=== PATIENT | male | born 1980 | race Caucasian/White ===

== ENCOUNTER 2016-08-16 12:35 | Emergency (ER) | payer SELFPAY ==
[~2016-08-16] VITALS: Ht 172.7 cm; Wt 77.1 kg
[~2016-08-16 12:35] MED LIST: ALPR1TAB2 PO; ANTIDEPRESSANT; AZTH250C PO; CELEXA PO; CLIN300C3 PO; CLON0.5T3 PO; CYCL10TA9 PO; DCS100C PO; DOXY-13 PO; FLUO40CA PO; GABA300C PO; HYDR1TAB PO; HYDR1TAB86; IBP800T PO; IBUP800T26 PO; LORA1TAB PO; METH4TAB PO; NAPR-243 PO; NF-ESOM40C PO; OMEP40CA36 PO; ONDA4TAB8 PO; OXC10TCR PO; OXC20TCR PO; OXYC-465 PO; OXYC15TA21 PO; OXYC1CAP3 PO; OXYC30TA PO; OXYC30TA22 PO; OXYCODON; PENI500T PO; PRAZ2CAP2 PO; PRAZ5CAP2 PO; PRD50T PO; QUET50TA55 PO; SILD100T PO; SULF-222 PO; SULF1TAB35 PO; SULF1TAB38 PO; TRAM-21 PO; TRAZ100T92 PO; TRM50T PO; [UNRECOGNIZED DRUG - OTHER]; oxycodone
--- OUTSIDE RECORDS SUMMARY | 2016-08-16 12:41 | XMS REPORT ---
Author Author THERESA BAREKR Organization [employer] Address Unknown Phone Unavailable Care Team Providers Care Help Desk Support Specialist Name Role Phone THERESA BARKER CP Unavailable Allergies No Known Allergies Problems Problem Type Condition Code Onset Dates Condition Status Problem Drug withdrawal 292.0 Active Problem Pneumonia, organism unspecified 486 Active Problem Cellulitis and abscess of other specified site 682.8 Active Medications No Known Medications Results No Known Results Summary Purpose [facility] Submission
--- NOTE | 2016-08-16 13:27 | ED EENT ---
History of Present Illness General Chief Complaint: Dental Problems/Pain Stated Complaint: FACIAL SWELLING Nursing Triage Note: Pt c/o L upper dental pain and L side facial swelling x1 week. Pt reports he saw a dentist and was then referred to Dr. Gore but was unable to be seen by Dr. Gore because he didn't have insurance. Source: patient Exam Limitations: no limitations History of Present Illness Time seen by provider: 13:26 Initial Comments 36 yo male patient presents to the emergency department with complaints of left upper dental pain and facial swelling for one week. Patient states he's been seen previously by his dentist and Dr. Gore, but is unable to afford Dr. Gore's procedure cost. Patient denies fevers or difficulty swallowing. Denies difficulty breathing. Patient states he is not able to take tylenol due to hepatitis C. States he can not take hydrocodone or codeine, but is able to take "the little pink pill for pain." Unable to remember the name. When patient asked if it was tramadol or oxycodone, patient states "yeah, that was it. oxycodone." Patient states he has a h/o IV drug use, but has been clean for 2-3 years. Patient tested (+) for meth, benzodiazepines, and opiates september 2015. Timing/Duration: gradual, last week Location: facial, dental Prearrival Treatment: no prearrival treatment Presenting Symptoms/Injuries: left upper dental pain and swelling. Modifying Factors: Worse With Other (worse with palpation and chewing) Allergies and Home Medications Allergies Coded Allergies: acetaminophen (Unverified Allergy, Mild, 02/14/09) codeine (Unverified Allergy, Mild, TAKES OXYCODONE AT HOME, 08/03/11) levofloxacin (Unverified Allergy, Mild, 11/26/08) propoxyphene (Unverified Allergy, Mild, 02/14/09) Metronidazole HCl (Verified Allergy, Unknown, 03/20/15) erythromycin base (Unverified Allergy, Unknown, 03/20/15) metronidazole (Verified Allergy, Unknown, 03/20/15) Home Medications Cephalexin 500 Mg Capsule #30 500 MG PO TID Prescribed by: CONRADO MARSHALL on 08/16/16 1402 Tramadol HCl 50 Mg Tablet #14 50 MG PO Q6H PRN PRN PAIN Prescribed by: CONRADO MARSHALL on 08/16/16 1402 Review of Systems Constitutional: No chills, No fever, No malaise Eyes: No Symptoms Reported Ears: No Symptoms Reported Nose: no symptoms reported Mouth: see HPI Throat: no symptoms reported Respiratory: no symptoms reported Cardiovascular: no symptoms reported Gastrointestinal: no symptoms reported Skin: No change in color Neurological: Denies Headache, Denies Numbness, Denies Paresthesia, Denies Tingling All Other Systems Reviewed Negative Unless Noted: Yes (Negative excepted noted.) Past Fvhaxkd-Zgysok-Bmucaz Hx Patient Social History Alcohol Use: Denies Use Recreational Drug Use: Yes (past hx meth per old records) Drug of Choice: METH Smoking Status: Current Everyday Smoker Type Used: Cigarettes Former Smoker/When Quit: Nov 29, 2011 Recent Foreign Travel: No Contact w/Someone Who Travel: No Recent Infectious Disease Expo: No Recent Hopitalizations: No Immunizations Up To Date Tetanus Booster (TDap): Less than 5yrs Date of Influenza Vaccine: Mar 04, 2012 Seasonal Allergies Seasonal Allergies: No Surgeries HX Surgeries: Yes (COLON RESECTION,L LEG,CARPEL TUNNEL,GROIN, R WRIST/ARM, BACK ,JAW) Surgeries: Abdominal, Orthopedic Respiratory Hx Respiratory Disorders: No Cardiovascular Hx Cardiac Disorders: Yes Cardiac Disorders: Heart Attack Neurological Hx Neurological Disorders: No Reproductive System Hx Reproductive Disorders: No Sexually Transmitted Disease: No HIV/AIDS: No Genitourinary Hx Genitourinary Disorders: No Gastrointestinal Hx Gastrointestinal Disorders: Yes (HEPATITIS C-NO TREATMENT) Gastrointestinal Disorders: Gastroesophageal Reflux, Hepatitis Musculoskeletal Hx Musculoskeletal Disorders: Yes Musculoskeletal Disorders: Back Injury, Chronic Back Pain Endocrine Hx Endocrine Disorders: No HEENT HX ENT Disorders: No Loss of Vision: Denies Hearing Impairment: Hard of Hearing Cancer Hx Cancer: No Psychosocial Hx Psychiatric Problems: Yes Behavioral Health Disorders: Sleep Difficulties, Anxiety, PTSD, Depression Integumentary HX Skin/Integumentary Disorder: No Blood Transfusions Hx Blood Disorders: No Reviewed Nursing Assessment Reviewed/Agree w Nursing PMH: Yes Family Medical History Significant Family History: No Pertinent Family Hx Physical Exam Vital Signs Vital Sign - Last 12Hours 08/16/16 13:00 Temp 98.8 Pulse 70 Resp 18 B/P 144/96 Pulse Ox 97 O2 Delivery Room Air General Appearance: WD/WN no apparent distress Eyes: bilateral eye EOMI, bilateral eye PERRL, bilateral eye normal inspection Ears: bilateral ear TM normal, bilateral ear auricle normal, bilateral ear canal normal Nose: normal inspection Mouth/Throat: pharynx normal dental tenderness (left upper dental tenderness. Mild swelling of the gums.)No excessive drooling, No mandibular swelling, maxillary swelling (left maxillary swelling.)No pharynx swelling, No pharynx tenderness, No tongue swollen, No trismus, No uvula swelling, No voice changes, other (patient is able to tolerate his own secretions. Numerous dental caries and fractured teeth throughout the mouth.) Neck: non-tender full range of motion suppleNo lymphadenopathy (R), lymphadenopathy (L) (anterior cervical lymphadenopathy.) Cardiovascular: regular rate, rhythm no murmur Respiratory: lungs clear normal breath sounds no respiratory distress Neurologic/Psychiatric: alert normal mood/affect oriented x 3 Skin: normal color warm/dry other (multiple scabs noted on the scalp and face. ) Progress/Results/Core Measures Results/Orders My Orders Orders-CONRADO MARSHALL Ibuprofen Tablet (Motrin Tablet) (08/16/16 13:44) Tramadol Tablet (Ultram Tablet) (08/16/16 13:44) Ceftriaxone Injection (Rocephin Injectio (08/16/16 13:45) Lidocaine 1% Injection (Xylocaine 1% Inj (08/16/16 13:45) Vital Signs/I&O Vital Sign - Last 12Hours 08/16/16 13:00 Temp 98.8 Pulse 70 Resp 18 B/P 144/96 Pulse Ox 97 O2 Delivery Room Air Blood Pressure Mean: 112 Departure Communication Progress Notes Patient seen and evaluated. Patient given 1 g Rocephin in the emergency department as well as ibuprofen and tramadol. Discharge to home. Impression Impression: Primary Impression: Dental abscess Additional Impression: Dental caries Disposition: HOME, SELF-CARE Condition: Improved Departure-Patient Inst. Decision time for Depature: 13:47 Referrals: BLAINE GORE DDS,LOCAL PHYSICIAN (PCP) Primary Care Physician [facility] Patient Instructions: Tooth Abscess (DC) Add. Discharge Instructions: All discharge instructions reviewed with patient and/or family. Voiced understanding. Medications as directed, Motrin 800 mg by mouth every 8 hours as needed for pain. Ice packs or heating pads as needed for pain and swelling. Diet as tolerated. Follow-up with your dentist or Dr. Gore as an outpatient for recheck and further management. Follow-up with Isrrael Morin APRN for recheck. Return to the emergency department for worsened pain, swelling, difficulty swallowing, difficulty breathing, fever, or any other concerns. Scripts Cephalexin 500 Mg [id number] Mg PO TID #30 CAP Ref 0 Prov:CONRADO MARSHALL 08/16/16 Tramadol HCl 50 Mg [id number] Mg PO Q6H PRN PAIN #14 TAB Ref 0 Prov:CONRADO MARSHALL 08/16/16 Copy Copies To 1: ADALBERTO MOREL GRETCHEN L PA Aug 16, 2016 13:27
[2016-08-16] MEDS ORDERED: IBUPROFEN 800 MG (MOTRIN) TAB PO STA (13:44)
[2016-08-16] MEDS ORDERED: cefTRIAXone 1 GM (ROCEPHIN) VIAL IM ONE (13:45)
[2016-08-16] MEDS ORDERED: LIDOCAINE 1% INJ 20 ML (XYLOCAINE) VIAL INJ ONE (13:45)
[2016-08-16] MEDS ORDERED: CEPH500C PO (14:02)
[2016-08-16] MEDS ORDERED: TRAM50TA2 PO (14:02)
[2016-08-16 14:36] VITALS: BP 138/96
== END 2016-08-16 14:36 | disposition home or self-care (01) ==
LOC: EDUNIT# 12:35 → ER 12:37
DX: K04.7 Periapical abscess without sinus (principal); K02.9 Dental caries, unspecified; F17.210 Nicotine dependence, cigarettes, uncomplicated
CPT/HCPCS: 96372; 99282

== ENCOUNTER 2017-09-14 10:52 | Emergency (ER) | payer SELFPAY ==
[~2017-09-14] VITALS: Ht 172.7 cm; Wt 77.1 kg
[~2017-09-14 10:52] MED LIST changes: +CEPH500C PO; +TRAM50TA2 PO; +TRAZ-190 PO; -TRAZ100T92 PO
[2017-09-14] MEDS ORDERED: TRAM50TA2 PO (11:29)
--- NOTE | 2017-09-14 11:29 | ED Lower Extremity ---
General Chief Complaint: Lower Extremity Stated Complaint: RT KNEE INJ Nursing Triage Note: RIGHT KNEE PAIN AFTER TWISTING WHEN PLAYING BASKETBALL. Nursing Sepsis Screen: No Definite Risk Source: patient Exam Limitations: no limitations History of Present Illness Date Seen by Provider: Sep 14, 2017 Time Seen by Provider: 11:26 Initial Comments to ER with right knee pain. He was playing basketball with his nephew about 3 hours prior to arrival when he twisted on his knee. He has lateral right knee pain and inability to bear weight. Onset: just prior to arrival Severity: moderate Pain/Injury Location: right knee Method of Injury: sports injury Modifying Factors: Worse With Movement Allergies and Home Medications Allergies Coded Allergies: acetaminophen (Unverified Allergy, Mild, 02/14/09) codeine (Unverified Allergy, Mild, TAKES OXYCODONE AT HOME, 08/03/11) levofloxacin (Unverified Allergy, Mild, 11/26/08) propoxyphene (Unverified Allergy, Mild, 02/14/09) Metronidazole HCl (Verified Allergy, Unknown, 03/20/15) erythromycin base (Unverified Allergy, Unknown, 03/20/15) metronidazole (Verified Allergy, Unknown, 03/20/15) Home Medications Tramadol HCl 50 Mg Tablet, 50 MG PO Q6H PRN for PAIN-MODERATE TO SEVERE Prescribed by: MARIELA CARMEN on 09/14/17 1129 Patient Home Medication List Home Medication List Reviewed: Yes Constitutional: see HPI EENTM: see HPI Respiratory: no symptoms reported Cardiovascular: no symptoms reported Genitourinary: no symptoms reported Musculoskeletal: see HPI Skin: no symptoms reported Psychiatric/Neurological: No Symptoms Reported Past Gqyxzgi-Fpvbps-Deefpt Hx Patient Social History Alcohol Use: Denies Use Recreational Drug Use: Yes Drug of Choice: METH HX Type Used: Smokeless Tobacco 2nd Hand Smoke Exposure: No Recent Foreign Travel: No Contact w/Someone Who Travel: No Recent Infectious Disease Expo: No Recent Hopitalizations: No Immunizations Up To Date Tetanus Booster (TDap): Less than 5yrs Date of Influenza Vaccine: Mar 04, 2012 Seasonal Allergies Seasonal Allergies: No Past Medical History Surgeries: Yes (COLON RESECTION,L LEG,CARPEL TUNNEL,GROIN, R WRIST/ARM, BACK, JAW) Abdominal, Orthopedic Respiratory: No Cardiac: Yes Heart Attack Neurological: No Reproductive Disorders: No Sexually Transmitted Disease: No HIV/AIDS: No Gastrointestinal: Yes (HEPATITIS C-NO TREATMENT) Gastroesophageal Reflux, Hepatitis Musculoskeletal: Yes Back Injury, Chronic Back Pain Endocrine: No Loss of Vision: Denies Hearing Impairment: Hard of Hearing Cancer: No Psychosocial: Yes Sleep Difficulties, Anxiety, PTSD, Depression Integumentary: No Blood Disorders: No Family Medical History No Pertinent Family Hx Physical Exam Vital Signs Vital Signs - First Documented 09/14/17 11:05 Temp 98.7 Pulse 110 Resp 18 B/P (MAP) 160/111 (127) Pulse Ox 98 O2 Delivery Room Air Capillary Refill : Less Than 3 Seconds General Appearance: WD/WN, no apparent distress HEENT: PERRL/EOMI, normal ENT inspection Neck: non-tender, full range of motion Respiratory: no respiratory distress, no accessory muscle use Hips: bilateral hip non-tender, bilateral hip normal inspection, bilateral hip normal range of motion Legs: bilateral leg non-tender, bilateral leg normal inspection, bilateral leg normal range of motion Knees: right knee pain, right knee other (No swelling or ecchymosis or erythema ) Ankles: bilateral ankle non-tender, bilateral ankle normal inspection, bilateral ankle normal range of motion Feet: bilateral foot non-tender, bilateral foot normal inspection, bilateral foot normal range of motion Neurologic/Psychiatric: alert, normal mood/affect, oriented x 3 Skin: normal color, warm/dry Progress/Results/Core Measures My Orders Orders - MARIELA CARMEN APRN Knee, Right, 3 Views (09/14/17 11:23) Tramadol Tablet (Ultram Tablet) (09/14/17 11:30) Crutches (09/14/17 11:30) Immobilizer Knee St 19 Inch (09/14/17 11:30) Medications Given in ED Current Medications Medications Dose Ordered Sig/Everardo Route Start Time Stop Time Status Last Admin Dose Admin Tramadol HCl 50 mg ONCE ONCE PO 09/14/17 11:30 09/14/17 11:31 DC 09/14/17 11:35 50 MG Vital Signs/I&O 09/14/17 09/14/17 09/14/17 11:05 11:35 12:15 Temp 98.7 98.7 98.7 Pulse 110 94 Resp 18 18 B/P (MAP) 160/111 (127) 145/95 (127) Pulse Ox 98 98 O2 Delivery Room Air Room Air Blood Pressure Mean: 127 Departure Impression Primary Impression: Sprain of knee Disposition: 01 HOME, SELF-CARE Condition: Stable Departure-Patient Inst. Decision time for Depature: 11:28 Referrals: [facility] (PCP/Family) Primary Care Physician Patient Instructions: Sprain (DC), Ligament Injuries in the Knee (DC) Add. Discharge Instructions: 1. Use crutches as needed when walking 2. Wear the knee brace when you're up moving about 3. Follow-up with your doctor next week for recheck. If you have persistent pain they may wish to order an MRI of the knee. All discharge instructions reviewed with patient and/or family. Voiced understanding. Scripts Tramadol HCl (Tramadol HCl) 50 Mg Tablet 50 MG PO Q6H PRN for PAIN-MODERATE TO SEVERE, #10 TAB Prov: MARIELA CARMEN APRN 09/14/17 MARIELA CARMEN APRN Sep 14, 2017 11:29
--- NOTE | 2017-09-14 11:53 | Diagnostic Imaging Report ---
INDICATION: Right knee pain and limited mobility. TIME OF EXAMINATION: 11:53 AM. FINDINGS: Three views of the right knee demonstrate normal alignment. The joint spaces are well maintained. The articular surfaces are smooth. No fracture, dislocation, or effusion is seen. IMPRESSION: No acute bony abnormality is detected. Dictated by: Dictated on workstation # [id number]
[2017-09-14 12:15] VITALS: BP 145/95
--- OUTSIDE RECORDS SUMMARY | 2017-09-16 07:27 | XMS REPORT ---
Author Author THERESA BARKER Organization [employer] Address Unknown Phone Unavailable Care Team Providers Care Electrical Electronics Engineer Name Role Phone THERESA BARKER CP Unavailable Allergies No Known Allergies Problems Problem Type Condition Code Onset Dates Condition Status Problem Drug withdrawal 292.0 Active Problem Pneumonia, organism unspecified 486 Active Problem Cellulitis and abscess of other specified site 682.8 Active Medications No Known Medications Results No Known Results Summary Purpose [facility] Submission
--- OUTSIDE RECORDS SUMMARY | 2017-09-16 07:28 | XMS REPORT ---
Author Author JOSE WHITE Organization [employer] Address Unknown Phone Unavailable Care Team Providers Care Piano Accompanist Name Role Phone JOSE WHITE CP Unavailable Allergies, Adverse Reactions, Alerts Substance Reaction Event Type Tylenol Info Not Available Drug Allergy Levaquin hives Drug Allergy Codeine Sulfate Info Not Available Drug Allergy Problems Problem Type Condition Code Onset Dates Condition Status Problem Posttraumatic stress disorder F43.10 Active Problem Anxiety disorder, unspecified F41.9 Active Problem Depressive disorder, not elsewhere classified F32.9 Active Assessment Anxiety disorder, unspecified F41.9 Active Assessment Depressive disorder, not elsewhere classified F32.9 Active Assessment Posttraumatic stress disorder F43.10 Active Medications No Known Medications Procedures Procedure Coding System Code Date Psych diagnostic evaluation, new patient CPT-4 56376 September 24, 2015 Results No Known Results Summary Purpose [employer] Submission
--- OUTSIDE RECORDS SUMMARY | 2017-09-16 07:28 | XMS REPORT ---
Author Author MARYLOU URENA Organization [employer] Address Unknown Phone Unavailable Care Team Providers Care Water Reclamation Systems Operator Name Role Phone MARYLOU URENA Unavailable Allergies No Known Allergies Problems Problem Type Condition Code Onset Dates Condition Status Problem Posttraumatic stress disorder F43.10 Active Problem Anxiety disorder, unspecified F41.9 Active Problem Depressive disorder, not elsewhere classified F32.9 Active Medications Medication Code System Code Instructions Start Date End Date Status Dosage Seroquel [facility] [address]-69 50 mg Orally twice a day September 23, 2015 1 tablet Prazosin HCl [facility] 16125532780 5 MG Orally Once a day 1 capsule at bedtime Omeprazole [facility] [address]-67 40 MG Orally Once a day 1 capsule Fluoxetine HCl [facility] [address]-53 40 MG Orally Once a day Mar 19, 2015 1 capsule in the morning Docusate Sodium [facility] [address]-02 100 MG Orally Twice a day 2 capsule as needed Trazodone HCl [facility] 94393997243 100 MG Orally Once a day at bedtime 2 tablet at bedtime Results No Known Results Summary Purpose [employer] Submission
--- OUTSIDE RECORDS SUMMARY | 2017-09-16 07:28 | XMS REPORT ---
Author Author THERESA BARKER Organization [employer] Address Unknown Phone Unavailable Care Team Providers Care Hospital Chaplain Name Role Phone THERESA BARKER CP Unavailable Allergies No Known Allergies Problems Problem Type Condition Code Onset Dates Condition Status Problem Drug withdrawal 292.0 Active Problem Pneumonia, organism unspecified 486 Active Problem Cellulitis and abscess of other specified site 682.8 Active Medications Medication Code System Code Instructions Start Date End Date Status Dosage Xanax [facility] [address]-72 1 MG Orally Three times a day 1 tablet Oxycodone HCl [facility] [address]-49 10 MG Orally 3 times a day Feb 17, 2015 1 tablet as needed Results No Known Results Summary Purpose [employer] Submission
--- OUTSIDE RECORDS SUMMARY | 2017-09-16 07:28 | XMS REPORT ---
Author Author MARYLOU URENA Organization [employer] Address Unknown Phone Unavailable Care Team Providers Care Biofuels Plant Manager Name Role Phone MARYOLU URENA CP Unavailable Allergies, Adverse Reactions, Alerts Substance Reaction Event Type Tylenol Info Not Available Drug Allergy Levaquin hives Drug Allergy Codeine Sulfate Info Not Available Drug Allergy Problems Problem Type Condition Code Onset Dates Condition Status Problem Posttraumatic stress disorder F43.10 Active Problem Anxiety disorder, unspecified F41.9 Active Problem Depressive disorder, not elsewhere classified F32.9 Active Assessment Posttraumatic stress disorder F43.10 Active Assessment Anxiety disorder, unspecified F41.9 Active Medications Medication Code System Code Instructions Start Date End Date Status Dosage Prazosin HCl [facility] [address]-48 5 MG Orally Once a day 1 capsule at bedtime Fluoxetine HCl [facility] [address]-27 40 MG Orally Once a day Mar 19, 2015 1 capsule in the morning Trazodone HCl [facility] 52524056721 100 MG Orally Once a day at bedtime 2 tablet at bedtime Procedures Procedure Coding System Code Date Office Visit, Est Pt., Level 4 CPT-4 22537 September 30, 2015 Vital Signs Date/Time: September 30, 2015 Temperature 98.6 F Weight 163.4 lbs Height 68.5 in BMI 24.48 Index Blood Pressure Diastolic 81 mmHg Blood Pressure Systolic 120 mmHg Cardiac Monitoring Heart Rate 88 bpm Results No Known Results Summary Purpose [employer] Submission
--- OUTSIDE RECORDS SUMMARY | 2017-09-16 07:29 | XMS REPORT | Continuity Of Care Document ---
Author Author [facility] Organization [facility] Address [address] [place] [address] Phone Care Team Providers Care Performance Consultant Name Role Phone MICHAEL MONTOYA MD AT NON STAFF COURTESY, PROVIDER PP Unavailable Results Results No results recorded. Allergies and Adverse Reactions Allergies and Adverse Reactions Patient Unit Number: [id number] Agent Type Reaction Severity Status METRONIDAZOLE Drug Allergy Unknown Mild Active LEVOFLOXACIN Drug Allergy HIVES Mild Active Problem List Problem List Visit/Account #[id number] (January 15, 2015 3:48pm - January 15, 2015 4:12pm) Acute Problems: Code/Condition Comments Documented Start Date Documented Resolved Date Code (s) Dental caries ICD10: K02.9 Dental caries ICD9: 521.00 Dental caries SNOMED: 917604833 Dental caries Plan of Care Plan Of Care Visit/Account #[id number] (January 15, 2015 3:48pm - January 15, 2015 4:12pm) Patient Instructions Return if worse or any concern. Follow-up with Hetal Holloway for establishment of primary care as well as for dental care. Vital Signs Vital Signs Visit/Account #[id number] (January 15, 2015 3:48pm - January 15, 2015 4:12pm) Sign First Result Last Result Code(s) Body Mass Index Body Mass Index (BMI): 23.0 kg/m2 On January 15, 2015 3:44pm 16009-5 BMI (body mass index) Body Mass Index as a Calculated Value 23.8 kg/m2 On January 15, 2015 3:44pm 91042-9 BMI (body mass index) Body Surface Area as a Calculated Value 1.89 m2 On January 15, 2015 3:44pm 3140-1 BSA (body surface area) Height (Feet/Inches) 5 [ft_us] 9 [in_us] On January 15, 2015 3:44pm Temperature in Fahrenheit Temperature (Fahrenheit): 98.6 [degF] On January 15, 2015 3:44pm Temperature (Fahrenheit): 98.3 [degF] On January 15, 2015 4:10pm 8310-5 Body Temperature Weight in Kilograms Weight (Kilograms): 73.2 kg On January 15, 2015 3:44pm 3141-9 Weight Measured 33862-1 Body weight measured in kilograms Functional Status Functional and Cognitive Status No Functional Status Data Medications Home Medications - Medications that the patient was taking prior to arrival at the hospital Visit/Account #[id number] (January 15, 2015 3:48pm - January 15, 2015 4:12pm) Medication Route Sig/Schedule Precondition/Indication Comments/Instructions Codes NEURONTIN(GABAPENTIN) 600 MG TABLET Dose: 900 MG ORAL 3 TIMES A DAY gabapentin 600 MG Oral Tablet [Neurontin] (RxNorm): 262375 NEURONTIN (GABAPENTIN) NDC: 13324824066 Prazosin(PRAZOSIN HCL) 2 MG CAP Dose: 2 MG ORAL AT BEDTIME Prazosin 2 MG Oral Capsule (RxNorm): 602429 Prazosin (PRAZOSIN HCL) NDC: 41847693878 PROZAC(FLUoxetine HCL) 40 MG CAPSULE Dose: 40 MG ORAL DAILY Fluoxetine 40 MG Oral Capsule [Prozac] (RxNorm): 925002 PROZAC (FLUoxetine HCL) NDC: 08136612348 PRILOSEC(OMEPRAZOLE) 20 MG CAPSULE.DR Dose: 20 MG ORAL DAILY Omeprazole 20 MG Delayed Release Oral Capsule [Prilosec] (RxNorm): 293263 PRILOSEC (OMEPRAZOLE) NDC: 04343005305 XANAX(ALPRAZolam) 1 MG TABLET Dose: 1 MG ORAL 3 TIMES A DAY ANXIETY/AGITATION/SLEEP Alprazolam 1 MG Oral Tablet [Xanax] (RxNorm): 947348 XANAX (ALPRAZolam) NDC: 68678992500 Discharge Medications - Medications that patient should continue to take. Review with physician Visit/Account #[id number] (January 15, 2015 3:48pm - January 15, 2015 4:12pm) Medication Route Sig/Schedule Precondition/Indication Comments/Instructions Codes Penicillin V Potassium(PENICILLIN V POTASSIUM) 500 MG TAB Dose: 1 TAB ORAL EVERY 6 HOURS Penicillin V Potassium 500 MG Oral Tablet (RxNorm): 149784 Penicillin V Potassium (PENICILLIN V POTASSIUM) NDC: 11837326293 Toradol(KETOROLAC TROMETHAMINE) 10 MG TAB Dose: 1 TAB ORAL EVERY 8 HOURS Ketorolac Tromethamine 10 MG Oral Tablet (RxNorm): 426228 Toradol (KETOROLAC TROMETHAMINE) NDC: 60678079666 History Of Encounters Encounters Visit/Account #[id number] (January 15, 2015 3:48pm - January 15, 2015 4:12pm) Account Status Physican Of Record Reason For Visit Visit Diagnosis Start Date/Time Stop Date/Time ER MICHAEL MONTOYA MD LEFT UPPER AND MID.UPPER TEETHACHE 525.9: DENTAL DISORDER NOS ICD9 Jan 15, 2015 3:48pm Jan 15, 2015 4:12pm History of Procedures Procedure List No procedures recorded. Discharge Instructions Discharge Instructions Visit/Account #[id number] (January 15, 2015 3:48pm - January 15, 2015 4:12pm) DISCHARGE INSTRUCTIONS Physician Documentation Social History Social History No Social History Data. Immunizations Immunizations Patient Unit Number: [id number] Immunizations No immunizations recorded.
--- OUTSIDE RECORDS SUMMARY | 2017-09-16 07:29 | XMS REPORT | Continuity Of Care Document ---
Author Author [facility] Organization [facility] Address [address] [place] [address] Phone Care Team Providers Care Tool And Die Repairer Name Role Phone UNASSIGNED, ED PHYSICIAN Unavailable Unavailable MICHAEL PALMER, MABEL Anguiano AT NON STAFF, PROVIDER Unavailable Unavailable Results Results No results recorded. Allergies and Adverse Reactions Allergies and Adverse Reactions Patient Unit Number: [id number] Agent Type Reaction Severity Status METRONIDAZOLE Drug Allergy Unknown Mild Active LEVOFLOXACIN Drug Allergy HIVES Mild Active Problem List Problem List Visit/Account #[id number] (January 30, 2015 4:02pm - January 30, 2015 6:16pm) Acute Problems: Code/Condition Comments Documented Start Date Documented Resolved Date Code (s) Dental abscess ICD10: K04.7 Dental abscess ICD9: 522.5 Dental abscess SNOMED: 765607983 Dental abscess Plan of Care Plan Of Care Visit/Account #[id number] (January 30, 2015 4:02pm - January 30, 2015 6:16pm) Patient Instructions 1. Home, rest 2. Apply heat to the area of discomfort 3. Ibuprofen 800mg every 8 hours for pain, tramadol 1 tab every 4 hours for breakthrough pain 4. Clindamycin four times daily x 10 days for infection 5. You need to a see a dentist for follow-up or infection will persist and fail to improve Vital Signs Vital Signs Visit/Account #[id number] (January 30, 2015 4:02pm - January 30, 2015 6:16pm) Sign First Result Last Result Code(s) Body Mass Index Body Mass Index (BMI): 25.0 kg/m2 On January 30, 2015 4:00pm 13875-9 BMI (body mass index) Body Mass Index as a Calculated Value 25.4 kg/m2 On January 30, 2015 4:00pm 10722-9 BMI (body mass index) Body Surface Area as a Calculated Value 1.91 m2 On January 30, 2015 4:00pm 3140-1 BSA (body surface area) Height (Feet/Inches) 5 [ft_us] 8.5 [in_us] On January 30, 2015 4:00pm Temperature in Fahrenheit Temperature (Fahrenheit): 99.3 [degF] On January 30, 2015 4:00pm Temperature (Fahrenheit): 98.3 [degF] On January 30, 2015 6:00pm 8310-5 Body Temperature Weight in Kilograms Weight (Kilograms): 76.8 kg On January 30, 2015 4:00pm 3141-9 Weight Measured 47378-5 Body weight measured in kilograms Functional Status Functional and Cognitive Status No Functional Status Data Medications Inpatient/Ordered Medications - Medications administered during hospital visit Visit/Account #[id number] (January 30, 2015 4:02pm - January 30, 2015 6:16pm) Medication Route Sig/Schedule Precondition/Indication Comments/Instructions Codes TORADOL INJ(KETOROLAC TROMETHAMINE) 60 MG/2 ML VIAL Dose: 60 MG Route .[facility] Ketorolac Tromethamine 30 MG/ML Injectable Solution (RxNorm): 871877 TORADOL INJ (KETOROLAC TROMETHAMINE) NDC: 19179856451 NORCO 5-325(HYDROcodone BIT/ACETAMINOPHEN) 1 TAB TAB Dose: 1 TAB ORAL NOW Rx Order Comments: Order placed as verified: Dose Warnings differ from grey stock recorder Label Comments: <<may be substituted for 5/500>> REC MAX DAILY DOSE ACETAMINOPHEN: 4000 MG/24 HR MAY INCREASE FALL RISK Acetaminophen 325 MG / Hydrocodone Bitartrate 5 MG Oral Tablet (RxNorm): 338152 NORCO 5-325 (HYDROcodone BIT/ACETAMINOPHEN) NDC: 90475950194 Discharge Medications - Medications that patient should continue to take. Review with physician Visit/Account #[id number] (January 30, 2015 4:02pm - January 30, 2015 6:16pm) Medication Route Sig/Schedule Precondition/Indication Comments/Instructions Codes NORCO 5-325 TABLET(HYDROcodone BIT/ACETAMINOPHEN) 1 TAB TABLET Dose: 1-2 TAB ORAL EVERY 6 HOURS PAIN Rx Instructions: 1-2 TAB Acetaminophen 325 MG / Hydrocodone Bitartrate 5 MG Oral Tablet (RxNorm): 511296 NORCO 5-325 TABLET (HYDROcodone BIT/ACETAMINOPHEN) ND: 95652645218 CLEOCIN(CLINDAMYCIN HCL) 150 MG CAP Dose: 300 MG ORAL 4 TIMES DAILY Clindamycin 150 MG Oral Capsule (RxNorm): 912821 CLEOCIN (CLINDAMYCIN HCL) NDC: 89837595760 History Of Encounters Encounters Visit/Account #[id number] (January 30, 2015 4:02pm - January 30, 2015 6:16pm) Account Status Physican Of Record Reason For Visit Visit Diagnosis Start Date/Time Stop Date/Time ER MABEL RODRIGUEZ MD LEFT UPPER MOLAR PAIN 525.9: DENTAL DISORDER NOS ICD9 Jan 30, 2015 4:02pm Jan 30, 2015 6:16pm History of Procedures Procedure List No procedures recorded. Discharge Instructions Discharge Instructions Visit/Account #[id number] (January 30, 2015 4:02pm - January 30, 2015 6:16pm) DISCHARGE INSTRUCTIONS Physician Documentation Social History Social History No Social History Data. Immunizations Immunizations Patient Unit Number: [id number] Immunizations No immunizations recorded.
--- OUTSIDE RECORDS SUMMARY | 2017-09-16 07:29 | XMS REPORT ---
Author Author THERESA BARKER [facility] Address [address] [place] [address] Care Team Providers Care Ring Attacher Name Role Phone THERESA BARKER Unavailable PROBLEMS Type Condition ICD9-CM Code YSN69-VB Code Onset Dates Condition Status SNOMED Code Problem Depressive disorder, not elsewhere classified F32.9 Active 02097381 Problem Posttraumatic stress disorder F43.10 Active 45903967 Problem Anxiety disorder, unspecified F41.9 Active 356205170 ALLERGIES Unknown Allergies SOCIAL HISTORY No smoking Hx information available PLAN OF CARE VITAL SIGNS MEDICATIONS Medication Instructions Dosage Frequency Start Date End Date Duration Status Fluoxetine HCl 40 mg 1 capsule in the morning 24h 30 Active Prazosin HCl 5 mg Orally Once a day 1 capsule at bedtime 24h 30 Active Trazodone HCl 100 MG Orally Once a day at bedtime 2 tablet at bedtime 30 Active Gabapentin 300 MG Orally Three times a day 3 capsule 8h Active RESULTS No Results PROCEDURES No Known procedures IMMUNIZATIONS No Known Immunizations
--- OUTSIDE RECORDS SUMMARY | 2017-09-16 07:29 | XMS REPORT ---
Author Author THERESA BARKER Organization [employer] Address Unknown Phone Unavailable Care Team Providers Care Supervisor [employer] Name Role Phone THERESA BARKER CP Unavailable Allergies No Known Allergies Problems No Known Problems Medications Medication Code System Code Instructions Start Date End Date Status Dosage Xanax [facility] [address]-88 1 MG Orally Three times a day 1 tablet Oxycodone HCl [facility] [address]-96 10 MG Orally 3 times a day Feb 17, 2015 1 tablet as needed Results No Known Results Summary Purpose [employer] Submission
--- OUTSIDE RECORDS SUMMARY | 2017-09-16 07:29 | XMS REPORT ---
Author Author THERESA BARKER [facility] [employer] Address Unknown Phone Unavailable Care Team Providers Care Die Barber Name Role Phone THERESA BARKER CP Unavailable Allergies, Adverse Reactions, Alerts Substance Reaction Event Type Tylenol Info Not Available Drug Allergy Levaquin hives Drug Allergy Codeine Sulfate Info Not Available Drug Allergy Problems Problem Type Condition Code Onset Dates Condition Status Problem Drug withdrawal 292.0 Active Problem Pneumonia, organism unspecified 486 Active Problem Cellulitis and abscess of other specified site 682.8 Active Assessment Bilateral low back pain, with sciatica presence unspecified M54.5 Active Assessment Pain in right knee M25.561 Active Assessment Pain in left knee M25.562 Active Medications Medication Code System Code Instructions Start Date End Date Status Dosage Gabapentin [facility] [address]-60 300 MG Orally Three times a day 3 capsule Trazodone HCl [facility] [address]-13 100 MG Orally Once a day at bedtime 2 tablet at bedtime Oxycodone HCl [facility] [address]-92 10 MG Orally 3 times a day Feb 17, 2015 1 tablet as needed Prazosin HCl [facility] [address]-24 2 MG Orally Once a day 1 capsule at bedtime Omeprazole [facility] [address]-12 40 MG Orally Once a day 1 capsule Xanax [facility] [address]-23 1 MG Orally Three times a day 1 tablet Morphine Sulfate ER [facility] [address]-84 20 MG Orally every 12 hrs May 07, 2015 1 capsule Fluoxetine HCl [facility] [address]-46 40 MG Orally Once a day Mar 19, 2015 1 capsule in the morning Docusate Sodium [facility] [address]-18 100 MG Orally Twice a day 2 capsule as needed Procedures Procedure Coding System Code Date Office Visit, Est Pt., Level 3 CPT-4 75801 May 07, 2015 Vital Signs Date/Time: May 07, 2015 Temperature 99.2 F Weight 156.7 lbs Height 68.5 in BMI 23.48 Index Blood Pressure Diastolic 74 mmHg Blood Pressure Systolic 132 mmHg Cardiac Monitoring Heart Rate 72 bpm Results No Known Results Summary Purpose [employer] Submission
--- OUTSIDE RECORDS SUMMARY | 2017-09-16 07:29 | XMS REPORT | Continuity Of Care Document ---
Author Author [facility] Organization [facility] Address [address] [place] [address] Phone Care Team Providers Care Courtesy Clerk Name Role Phone UNASSIGNED, ED PHYSICIAN Unavailable Unavailable MICHAEL PALMER, MABEL Anguiano AT Results Lab Results Visit/Account #[id number] (2015 2:19pm - 2015 6:58pm) Test Result Date/Time 54727-2: COMPLETE BLOOD COUNT WITH DIFF WHITE BLOOD COUNT(4.0-11.0 10E3/UL) 11.1 10E3/UL 2015 2:22pm RED BLOOD COUNT(4.50-5.90 10E6/UL) 3.64 10E6/UL 2015 2:22pm HEMOGLOBIN(13.5-17.5 G/DL) 11.5 G/DL 2015 2:22pm HEMATOCRIT(41.0-53.0 %) 34.1 % 2015 2:22pm MEAN CORPUSCULAR VOLUME(82.0-100.0 FL) 93.7 FL 2015 2:22pm 03726-7: MEAN CORPUSCULAR HEMOGLOBIN(26.0-34.0 PG) 31.6 PG 2015 2:22pm MEAN CORPUSCULAR HGB CONC(31.5-36.5 G/DL) 33.7 G/DL 2015 2:22pm RED CELL DISTRIBUTION WIDTH(11.5-14.5 %) 13.2 % 2015 2:22pm 777-3: PLATELET COUNT(150-450 10E3/UL) 198 10E3/UL 2015 2:22pm MEAN PLATELET VOLUME(8.2-12.4 FL) 10.4 FL 2015 2:22pm 770-8: NEUTROPHILS % (AUTO)(40-70 %) 60 % 2015 2:22pm LYMPHOCYTES % (AUTO)(15-45 %) 27 % 2015 2:22pm 5905-5: MONOCYTES % (AUTO)(2-10 %) 4 % 2015 2:22pm 713-8: EOSINOPHILS % (AUTO)(0-6 %) 9 % 2015 2:22pm 706-2: BASOPHILS % (AUTO)(0-1 %) 1 % 2015 2:22pm 27965-5: IMMATURE GRANS % (AUTO)(0-0 %) 0 % 2015 2:22pm NUCLEATED RBCS (AUTO)(0-0 %) 0 % 2015 2:22pm 751-8: NEUTROPHILS # (AUTO)(2.5-7.5 10E3/UL) 6.6 10E3/UL 2015 2:22pm 87921-6: LYMPHOCYTES # (AUTO)(1.0-4.0 10E3/UL) 3.0 10E3/UL 2015 2:22pm 742-7: MONOCYTES # (AUTO)(0.2-0.8 10E3/UL) 0.4 10E3/UL 2015 2:22pm 711-2: EOSINOPHILS # (AUTO)(0.0-0.4 10E3/UL) 1.0 10E3/UL 2015 2:22pm 704-7: BASOPHILS # (AUTO)(0.0-0.2 10E3/UL) 0.1 10E3/UL 2015 2:22pm IMMATURE GRANS # (AUTO)(0.0-0.0 10E3/UL) 0.0 10E3/UL 2015 2:22pm DIFF TYPE AUTOMATED 2015 2:22pm 83215-1: PROTHROMBIN TIME WITH INR PROTHROMBIN TIME(12.1-14.0 SEC) 13.5 SEC 2015 2:22pm 18419-4: INR 1.02 Result Comments: INR reference interval applies to patients on anticoagulant therapy. Suggested INR therapeutic range for oral anticoagulant therapy: (Stabilized anticoagulated patients) Routine Therapy: 2.0 to 3.0 Recurrent Myocardial Infarction: 2.5 to 3.5 Mechanical Prosthetic Valves: 2.5 to 3.5 2015 2:22pm 40282-5: D-DIMER 10982-2: D-DIMER(0.00-0.49 UG/ML) Less than 0.27 UG/ML 2015 2:22pm 72076-4: COMPLETE METABOLIC PROFILE GLUCOSE(70-110 MG/DL) 125 MG/DL 2015 2:22pm BLOOD UREA NITROGEN(6-20 MG/DL) 18 MG/DL 2015 2:22pm CREATININE(0.50-1.20 MG/DL) 1.01 MG/DL 2015 2:22pm 47823-3: EST GLOMERULAR FILTRATION RATE(Greater than or equal to 60) Greater than or equal to 60 Result Comments: If the patient is of -[place] descent/extraction multiply the eGFR value by 1.212 to obtain the actual eGFR. >=60 mg/dL Normal 30-59 mg/dL Moderate Kidney Disease 15-29 mg/dL Severe Kidney Disease <15 mg/dL Kidney Failure 2015 2:22pm BUN CREATININE RATIO(10.0-20.0 RATIO) 18.0 RATIO 2015 2:22pm SODIUM(135-145 MMOL/L) 138 MMOL/L 2015 2:22pm POTASSIUM(3.6-5.0 MMOL/L) 3.2 MMOL/L 2015 2:22pm CHLORIDE(101-111 MMOL/L) 102 MMOL/L 2015 2:22pm 2027-: CO2(21-31 MMOL/L) 28.0 MMOL/L 2015 2:22pm 56506-3: ANION GAP(8-18) 11 2015 2:22pm OSMO CALCULATED(270.0-290.0) 279.1 2015 2:22pm CALCIUM(8.5-10.5 MG/DL) 9.5 MG/DL 2015 2:22pm BILIRUBIN,TOTAL(0.1-1.2 MG/DL) 0.1 MG/DL 2015 2:22pm ALKALINE PHOSPHATASE(42-121 IU/L) 47 IU/L 2015 2:22pm ASPARTATE AMINO TRANSFERASE(10-42 IU/L) 29 IU/L 2015 2:22pm ALANINE AMINOTRANSFERASE(10-60 IU/L) 21 IU/L 2015 2:22pm 90910-9: TOTAL PROTEIN(6.4-8.2 G/DL) 6.9 G/DL 2015 2:22pm ALBUMIN(3.5-5.5 G/DL) 3.9 G/DL 2015 2:22pm 2336-6: GLOBULIN(2.4-3.6) 3.0 2015 2:22pm ALBUMIN/GLOBULIN RATIO(0.9-1.8 RATIO) 1.3 RATIO 2015 2:22pm 89650-4: CARDIAC TROPONIN I 71401-9: CARDIAC TROPONIN I(0.01-0.04 NG/ML) 0.02 NG/ML Result Comments: REFERENCE RANGES: NEGATIVE < 0.04 NG/ML POSSIBLE MYCARDIAL INVOLVEMENT >/=0.04 NG/ML INTERPRET TROPONIN I RESULT IN LIGHT OF THE TOTAL CLINICAL PRESENTATION INCLUDING CLINICAL HISTORY. ANY CONDITION RESULTING IN MYOCARDIAL INJURY CAN POTENTIALLY ELEVATE TROPONIN I LEVELS ABOVE EXPECTED NORMAL RANGES. NOTE NEW REFERENCE RANGE 2015 2:22pm 0.03 NG/ML Result Comments: REFERENCE RANGES: NEGATIVE < 0.04 NG/ML POSSIBLE MYCARDIAL INVOLVEMENT >/=0.04 NG/ML INTERPRET TROPONIN I RESULT IN LIGHT OF THE TOTAL CLINICAL PRESENTATION INCLUDING CLINICAL HISTORY. ANY CONDITION RESULTING IN MYOCARDIAL INJURY CAN POTENTIALLY ELEVATE TROPONIN I LEVELS ABOVE EXPECTED NORMAL RANGES. NOTE NEW REFERENCE RANGE 2015 4:40pm 0.03 NG/ML Result Comments: REFERENCE RANGES: NEGATIVE < 0.04 NG/ML POSSIBLE MYCARDIAL INVOLVEMENT >/=0.04 NG/ML INTERPRET TROPONIN I RESULT IN LIGHT OF THE TOTAL CLINICAL PRESENTATION INCLUDING CLINICAL HISTORY. ANY CONDITION RESULTING IN MYOCARDIAL INJURY CAN POTENTIALLY ELEVATE TROPONIN I LEVELS ABOVE EXPECTED NORMAL RANGES. NOTE NEW REFERENCE RANGE 2015 5:52pm 3040-3: LIPASE 3040-3: LIPASE(22-51 U/L) 33 U/L 2015 2:22pm Allergies and Adverse Reactions Allergies and Adverse Reactions Patient Unit Number: [id number] Agent Type Reaction Severity Status METRONIDAZOLE Drug Allergy Unknown Mild Active LEVOFLOXACIN Drug Allergy HIVES Mild Active Problem List Problem List Visit/Account #[id number] (2015 2:19pm - 2015 6:58pm) Acute Problems: Code/Condition Comments Documented Start Date Documented Resolved Date Code (s) Chest pain ICD10: R07.9 Chest pain ICD9: 786.50 Chest pain SNOMED: 02682003 Chest pain Plan of Care Plan Of Care Visit/Account #[id number] (2015 2:19pm - 2015 6:58pm) Patient Instructions Follow with primary care DrCedrick in 2-3 days for possible stress test. Continue home medications. Return to emergency room if symptoms worsens or has any concern. Vital Signs Vital Signs Visit/Account #[id number] (2015 2:19pm - 2015 6:58pm) Sign First Result Last Result Code(s) Body Mass Index Body Mass Index (BMI): 25.0 kg/m2 On 2015 2:19pm 43201-9 BMI (body mass index) Height (Feet/Inches) 68 [in_us] On 2015 2:19pm Temperature in Fahrenheit Temperature (Fahrenheit): 98.1 [degF] On 2015 2:19pm Temperature (Fahrenheit): 98.8 [degF] On 2015 6:59pm 8310-5 Body Temperature Weight in Kilograms Weight (Kilograms): 76.6 kg On 2015 2:19pm 3141-9 Weight Measured 20397-1 Body weight measured in kilograms Functional Status Functional and Cognitive Status No Functional Status Data Medications Inpatient/Ordered Medications - Medications administered during hospital visit Visit/Account #[id number] (2015 2:19pm - 2015 6:58pm) Medication Route Sig/Schedule Precondition/Indication Comments/Instructions Codes MAALOX PLUS(AL HYDROX/MG HYDROX/SIMETH) 30 ML LIQUID Dose: 30 ML ORAL NOW Rx Order Comments: Order placed as verified: Dose Warnings differ from box order person Dose Warnings differ from box order person Label Comments: GI COCKTAIL Aluminum Hydroxide 40 MG/ML / Magnesium Hydroxide 40 MG/ML / Simethicone 4 MG/ ML Oral Suspen (RxNorm): 517152 MAALOX PLUS (AL HYDROX/MG HYDROX/SIMETH) NDC: 56008768271 BENADRYL ELIX(DiphenhydrAMINE HCL) 12.5 MG/5 ML ELIXIR Dose: 5 ML ORAL NOW Rx Order Comments: Order placed as verified: Dose Warnings differ from box order person Dose Warnings differ from box order person Label Comments: GI COCKTAIL Diphenhydramine Hydrochloride 2.5 MG/ML Oral Solution (RxNorm): 8039327 BENADRYL ELIX (DiphenhydrAMINE HCL) NDC: 40731259994 PEPCID(FAMOTIDINE) 40 MG TAB Dose: 40 MG ORAL NOW Rx Order Comments: Order placed as verified: Dose Warnings differ from box order person Dose Warnings differ from box order person Label Comments: GI COCKTAIL Famotidine 40 MG Oral Tablet (RxNorm): 306724 PEPCID (FAMOTIDINE) NDC: 24857487512 ATIVAN INJ(LORazepam) 2 MG/ML INJECTION Dose: 0.25 ML INTRAVEN NOW Rx Order Comments: Order placed as verified: Dose Warnings differ from box order person Dose Warnings differ from box order person Label Comments: *DILUTE WITH EQUAL VOLUME OF NORMAL SALINE PRIOR TO IV ADMINISTRATION MAY INCREASE FALL RISK Lorazepam 2 MG/ML Injectable Solution [Ativan] (RxNorm): 176342 ATIVAN INJ (LORazepam) NDC: 16602489704 K-DUR(POTASSIUM CHLORIDE) 20 MEQ TAB Dose: 40 MEQ ORAL NOW Rx Order Comments: Order placed as verified: Dose Warnings differ from box order person Dose Warnings differ from box order person Label Comments: TAKE WITH FOOD TO AVOID GI UPSET Potassium Chloride 20 MEQ Extended Release Oral Tablet [Klor-Con] (RxNorm): 983452 K-DUR (POTASSIUM CHLORIDE) NDC: 89901773136 ATIVAN INJ(LORazepam) 2 MG/ML INJECTION Dose: 0.25 ML INTRAVEN NOW Rx Order Comments: Order placed as verified: Dose Warnings differ from box order person Dose Warnings differ from box order person Label Comments: *DILUTE WITH EQUAL VOLUME OF NORMAL SALINE PRIOR TO IV ADMINISTRATION MAY INCREASE FALL RISK Lorazepam 2 MG/ML Injectable Solution [Ativan] (RxNorm): 249405 ATIVAN INJ (LORazepam) NDC: 02625915909 History Of Encounters Encounters Visit/Account #[id number] (2015 2:19pm - 2015 6:58pm) Account Status Physican Of Record Reason For Visit Visit Diagnosis Start Date/Time Stop Date/Time SAPPHIRE RODRIGUEZ MD CHEST PAIN R07.9: CHEST PAIN, UNSPECIFIED ICD10 2015 2:19pm 2015 6:58pm History of Procedures Procedure List No procedures recorded. Discharge Instructions Discharge Instructions Visit/Account #[id number] (2015 2:19pm - 2015 6:58pm) DISCHARGE INSTRUCTIONS Physician Documentation Social History Social History No Social History Data. Immunizations Immunizations Patient Unit Number: [id number] Immunizations No immunizations recorded.
--- OUTSIDE RECORDS SUMMARY | 2017-09-16 07:30 | XMS REPORT ---
Author Author THERESA BARKER [facility] Address [address] [place] [address] Care Team Providers Care Manual Winder Name Role Phone THERESA BARKER Unavailable PROBLEMS Type Condition ICD9-CM Code RKA44-PC Code Onset Dates Condition Status SNOMED Code Problem Mood disorder F39 Active 13694434 Problem Anxiety disorder, unspecified F41.9 Active 982664577 Problem Depressive disorder, not elsewhere classified F32.9 Active 28946680 Problem Posttraumatic stress disorder F43.10 Active 55901085 ALLERGIES No Known Allergies SOCIAL HISTORY No smoking Hx information available PLAN OF CARE VITAL SIGNS Height 68.5 in 2016-07-04 Weight 170 lbs 2016-07-04 Heart Rate 76 bpm 2016-07-04 Respiratory Rate 16 2016-07-04 BMI 25.47 kg/m2 2016-07-04 Blood pressure systolic 118 mmHg 2016-07-04 Blood pressure diastolic 70` mmHg 2016-07-04 MEDICATIONS Medication Instructions Dosage Frequency Start Date End Date Duration Status Trazodone HCl 150 MG Orally Once a day at bedtime 2 tablets Active BuPROPion HCl 100 MG Orally Twice a day 1 tablet 12h Jun, 30 day(s) Active RESULTS No Results PROCEDURES Procedure Date Ordered Related Diagnosis Body Site Office Visit, Est Pt., Level 2 Jul 04, 2016 IMMUNIZATIONS No Known Immunizations
--- OUTSIDE RECORDS SUMMARY | 2017-09-16 07:30 | XMS REPORT ---
Author Author MARLY HERNANDEZ Organization [employer] Address Unknown Phone Unavailable Care Team Providers Care Pit Recorder Name Role Phone MARLY HERNANDEZ CP Unavailable Allergies No Known Allergies Problems [...] Medications Procedures Procedure Coding System Code Date Psychotherapy, patient &/family, 30 minutes, established patient CPT-4 01191 September 15, 2015 Results No Known Results Summary Purpose [employer] Submission
--- OUTSIDE RECORDS SUMMARY | 2017-09-16 07:30 | XMS REPORT ---
Author Author THERESA BARKER Organization [facility] Address [address] [place] [address] Care Team Providers Care Talent Acquisition Relationship Manager Name Role Phone THERESA BARKER Unavailable PROBLEMS Type Condition ICD9-CM Code IOC30-FM Code Onset Dates Condition Status SNOMED Code Problem Mood disorder F39 Active 34140131 Problem Anxiety disorder, unspecified F41.9 Active 131135791 Problem Depressive disorder, not elsewhere classified F32.9 Active 75508721 Problem Posttraumatic stress disorder F43.10 Active 65597480 ALLERGIES No Known Allergies SOCIAL HISTORY No smoking Hx information available PLAN OF CARE VITAL SIGNS MEDICATIONS Medication Instructions Dosage Frequency Start Date End Date Duration Status Trazodone HCl 100 MG Orally Once a day at bedtime 1 tablet at bedtime 30 Active Gabapentin 800 MG Orally Three times a day 1 capsule 8h Active RESULTS No Results PROCEDURES No Known procedures IMMUNIZATIONS No Known Immunizations
--- OUTSIDE RECORDS SUMMARY | 2017-09-16 07:30 | XMS REPORT ---
Author Author THERESA BARKER Organization [employer] Address Unknown Phone Unavailable Care Team Providers Care Electron Beam Machine Welder Setter Name Role Phone THERESA BARKER CP Unavailable Allergies No Known Allergies Problems No Known Problems Medications Medication Code System Code Instructions Start Date End Date Status Dosage Morphine Sulfate ER [facility] [address]-66 20 MG Orally every 12 hrs May 07, 2015 1 tablet Results No Known Results Summary Purpose [employer] Submission
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
--- OUTSIDE RECORDS SUMMARY | 2017-09-16 07:30 | XMS REPORT ---
Author Author MARLY HERNANDEZ Organization [employer] Address Unknown Phone Unavailable Care Team Providers Care Ammunition Assembly Ii Laborer Name Role Phone MARLY HERNANDEZ CP Unavailable Allergies No Known Allergies Problems Problem Type Condition Code Onset Dates Condition Status Problem Posttraumatic stress disorder F43.10 Active Problem Anxiety disorder, unspecified F41.9 Active Problem Depressive disorder, not elsewhere classified F32.9 Active Assessment Posttraumatic stress disorder F43.10 Active Assessment Depressive disorder, not elsewhere classified F32.9 Active Medications No Known Medications Procedures Procedure Coding System Code Date Psychotherapy, patient &/family, 30 minutes, established patient CPT-4 28079 September 29, 2015 Results No Known Results Summary Purpose [employer] Submission
--- OUTSIDE RECORDS SUMMARY | 2017-09-16 07:30 | XMS REPORT ---
Author Author THERESA BARKER Organization [facility] Address [address] [place] [address] Care Team Providers Care Compliance Director Name Role Phone THERESA BARKER Unavailable PROBLEMS Type Condition ICD9-CM Code [id number] Code Onset Dates Condition Status SNOMED Code Problem Mood disorder F39 Active 45849116 Problem Anxiety disorder, unspecified F41.9 Active 228205867 Problem Depressive disorder, not elsewhere classified F32.9 Active 80763740 Problem Posttraumatic stress disorder F43.10 Active 41269702 ALLERGIES No Information SOCIAL HISTORY Never Assessed PLAN OF CARE VITAL SIGNS MEDICATIONS Medication Instructions Dosage Frequency Start Date End Date Duration Status Seroquel 100 mg Orally at bedtime as needed 1 tablet Jul, Active RESULTS No Results PROCEDURES No Known procedures IMMUNIZATIONS No Known Immunizations MEDICAL (GENERAL) HISTORY Type Description Date Medical [...] Hospitalization History Intractable Abdominal Pain, N/V, 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
--- OUTSIDE RECORDS SUMMARY | 2017-09-16 07:30 | XMS REPORT ---
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 Active Medications Medication Code System Code Instructions Start Date End Date Status Dosage Gabapentin [facility] [address]-27 300 MG Orally Three times a day 3 capsule Oxycodone HCl [facility] [address]-18 10 MG Orally 3 times a day Feb 17, 2015 1 tablet as needed Prazosin HCl [facility] [address]-43 2 MG Orally Once a day 1 capsule at bedtime Morphine Sulfate ER [facility] [address]-25 30 MG Orally every 12 hrs Jun 09, 2015 1 tablet Morphine Sulfate ER [facility] [address]-06 20 MG Orally every 12 hrs May 07, 2015 1 tablet Fluoxetine HCl [facility] [address]-44 40 MG Orally Once a day Mar 19, 2015 1 capsule in the morning Omeprazole [facility] [address]-57 40 MG Orally Once a day 1 capsule Xanax [facility] [address]-74 1 MG Orally Three times a day 1 tablet Trazodone HCl [facility] [address]-97 100 MG Orally Once a day at bedtime 2 tablet at bedtime Docusate Sodium [facility] [address]-45 100 MG Orally Twice a day 2 capsule as needed Procedures Procedure Coding System Code Date Office Visit, Est Pt., Level 3 CPT-4 87110 Jun 09, 2015 Vital Signs Date/Time: Jun 09, 2015 Temperature 98.8 F Weight 159.8 lbs Height 68.5 in BMI 23.94 Index Blood Pressure Diastolic 86 mmHg Blood Pressure Systolic 144 mmHg Cardiac Monitoring Heart Rate 80 bpm Results No Known Results Summary Purpose [employer] Submission
--- OUTSIDE RECORDS SUMMARY | 2017-09-16 07:30 | XMS REPORT ---
Author THERESA Chilel Organization [employer] Address Unknown Phone Unavailable Care Team Providers Care Therapeutic Riding Instructor Name Role Phone THERESA BARKER CP Unavailable Allergies No Known Allergies Problems Problem Type Condition Code Onset Dates Condition Status Problem Posttraumatic stress disorder F43.10 Active Problem Anxiety disorder, unspecified F41.9 Active Problem Depressive disorder, not elsewhere classified F32.9 Active Medications Medication Code System Code Instructions Start Date End Date Status Dosage Seroquel [facility] [address]-90 50 mg Orally twice a day September 23, 2015 1 tablet Results No Known Results Summary Purpose [employer] Submission
--- OUTSIDE RECORDS SUMMARY | 2017-09-16 07:31 | XMS REPORT ---
Author Author THERESA BARKER Organization [employer] Address Unknown Phone Unavailable Care Team Providers Care Micro Paleontologist Name Role Phone THERESA BARKER CP Unavailable Allergies, Adverse Reactions, Alerts Substance Reaction Event Type Tylenol Info Not Available Drug Allergy Levaquin hives Drug Allergy Codeine Sulfate Info Not Available Drug Allergy Problems Problem Type Condition Code Onset Dates Condition Status Problem Drug withdrawal 292.0 Active Problem Pneumonia, organism unspecified 486 Active Problem Cellulitis and abscess of other specified site 682.8 Active Assessment Anxiety F41.9 Active Assessment Bilateral back pain, unspecified location M54.9 Active Medications Medication Code System Code Instructions Start Date End Date Status Dosage Trazodone HCl [facility] [address]-44 100 MG Orally Once a day at bedtime 2 tablet at bedtime Docusate Sodium [facility] [address]-75 100 MG Orally Twice a day 2 capsule as needed Gabapentin [facility] [address]-44 300 MG Orally Three times a day 3 capsule Prazosin HCl [facility] [address]-94 2 MG Orally Once a day 1 capsule at bedtime Xanax [facility] [address]-67 1 MG Orally Three times a day 1 tablet Oxycodone HCl [facility] [address]-49 10 MG Orally 3 times a day Feb 17, 2015 1 tablet as needed Omeprazole [facility] [address]-30 40 MG Orally Once a day 1 capsule Fluoxetine HCl [facility] [address]-54 40 MG Orally Once a day Mar 19, 2015 1 capsule in the morning Procedures Procedure Coding System Code Date Office Visit, Est Pt., Level 3 CPT-4 80817 Mar 19, 2015 Vital Signs Date/Time: Mar 19, 2015 Temperature 97.2 F Weight 157.0 lbs Height 68.5 in Pain Scale 2 1-10 Blood Pressure Diastolic 98 mmHg Blood Pressure Systolic 128 mmHg Cardiac Monitoring Heart Rate 80 bpm BMI 23.52 Index Results No Known Results Summary Purpose [employer] Submission
--- OUTSIDE RECORDS SUMMARY | 2017-09-16 07:32 | XMS REPORT ---
Author Author THERESA BARKER Organization [employer] Address Unknown Phone Unavailable Care Team Providers Care Security Solutions Engineer Name Role Phone THERESA BARKER CP Unavailable Allergies No Known Allergies Problems Problem Type Condition Code Onset Dates Condition Status Problem Drug withdrawal 292.0 Active Problem Pneumonia, organism unspecified 486 Active Problem Cellulitis and abscess of other specified site 682.8 Active Medications No Known Medications Results No Known Results Summary Purpose [employer] Submission
--- OUTSIDE RECORDS SUMMARY | 2017-09-16 07:32 | XMS REPORT ---
Author Author MARLY HERNANDEZ Organization [employer] Address Unknown Phone Unavailable Care Team Providers Care Cargo Agent Name Role Phone MARLY HERNANDEZ CP Unavailable Allergies No Known Allergies Problems Problem Type Condition Code Onset Dates Condition Status Problem Posttraumatic stress disorder F43.10 Active Problem Anxiety disorder, unspecified F41.9 Active Problem Depressive disorder, not elsewhere classified F32.9 Active Assessment Depressive disorder, not elsewhere classified F32.9 Active Assessment Posttraumatic stress disorder F43.10 Active Medications No Known Medications Procedures Procedure Coding System Code Date Psychotherapy, patient &/family, 45 minutes, established patient CPT-4 86501 September 23, 2015 Results No Known Results Summary Purpose [employer] Submission
--- OUTSIDE RECORDS SUMMARY | 2017-09-16 07:32 | XMS REPORT ---
Author Author THERESA BARKER Organization [facility] Address [address] [place] [address] Care Team Providers Care Tripper Name Role Phone THERESA BARKER Unavailable PROBLEMS Type Condition ICD9-CM Code CSB20-RU Code Onset Dates Condition Status SNOMED Code Problem Mood disorder F39 Active 48756405 Problem Anxiety disorder, unspecified F41.9 Active 254530433 Problem Depressive disorder, not elsewhere classified F32.9 Active 56811400 Problem Posttraumatic stress disorder F43.10 Active 41548164 ALLERGIES No Information SOCIAL HISTORY Never Assessed PLAN OF CARE VITAL SIGNS MEDICATIONS Medication Instructions Dosage Frequency Start Date End Date Duration Status BuPROPion HCl 75 MG Orally Twice a day 2 tablets 12h Jun, Active RESULTS No Results PROCEDURES No Known [...] Hospitalization History Intractable Abdominal Pain, N/V, 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
--- OUTSIDE RECORDS SUMMARY | 2017-09-16 07:32 | XMS REPORT ---
Author Author THERESA BARKER Organization [employer] Address Unknown Phone Unavailable Care Team Providers Care Rent And Miscellaneous Remittance Clerk Name Role Phone THERESA BARKER CP Unavailable Allergies No Known Allergies Problems Problem Type Condition Code Onset Dates Condition Status Problem Drug withdrawal 292.0 Active Problem Pneumonia, organism unspecified 486 Active Problem Cellulitis and abscess of other specified site 682.8 Active Medications Medication Code System Code Instructions Start Date End Date Status Dosage Trazodone HCl [facility] [address]-33 100 MG Orally Once a day at bedtime 2 tablet at bedtime Oxycodone HCl [facility] [address]-76 10 MG Orally 3 times a day Feb 17, 2015 1 tablet as needed Xanax [facility] [address]-00 1 MG Orally Three times a day 1 tablet Results No Known Results Summary Purpose [employer] Submission
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
== END 2017-09-14 12:08 | disposition home or self-care (01) ==
LOC: EDUNIT# 10:52 → ER 10:54
DX: S83.91XA Sprain of unspecified site of right knee, initial encounter (principal); I25.2 Old myocardial infarction; K21.9 Gastro-esophageal reflux disease without esophagitis; B19.20 Unspecified viral hepatitis C without hepatic coma; F41.9 Anxiety disorder, unspecified; F32.9 Major depressive disorder, single episode, unspecified; F43.10 Post-traumatic stress disorder, unspecified; Z88.6 Allergy status to analgesic agent; Z88.1 Allergy status to other antibiotic agents; Z88.8 Allergy status to other drugs, medicaments and biological substances; Z90.49 Acquired absence of other specified parts of digestive tract; Z88.5 Allergy status to narcotic agent; X50.0XXA Overexertion from strenuous movement or load, initial encounter; Y93.67 Activity, basketball
CPT/HCPCS: 73562

== ENCOUNTER → 2018-08-27 | Outpatient (REF) ==
--- NOTE | 2018-08-27 12:30 | Diagnostic Imaging Report ---
INDICATION: Right knee injury. FINDINGS: Three views of the right knee show no fracture, dislocation, or pathologic effusion. IMPRESSION: Negative right knee. Dictated by: Dictated on workstation # [id number]
== END | disposition home or self-care (01) ==
LOC: OCC 10:36
PROVIDERS: ATTEND Nurse Practitioner Family
CPT/HCPCS: 73562